=== PATIENT | female | born 1985 | race Caucasian/White ===

== ENCOUNTER 2019-11-10 01:39 | Inpatient (IN) ==
[2019-11-10] MEDS ORDERED: OXYTOCIN 30 UNITS/500 ML BAG IV PRN ×2 (04:22→12:40)
--- NOTE | 2019-11-10 04:29 | History & Physical Report ---
Date of Service November 10, 2019 Assessment & Plan (1) Normal labor: admit. Patient desires expectant management. pitocin /from if indicated. epidural on demand. fetus reassuring. anticipate . History of Present Illness Chief Complaint: contractions Primary Care Provider: NO PCP Patient is a with iup at 39 6/7 weeks who presents with contractions. no lof/vb. +fm. uncomplicated. labsA+/ab-/pap nl/ri/rprnr/hepb-/hiv-/gc/ct-/declined genetics/failed 16 week gtt, passed 2 hr/passed 2 hr gtt at 28 weeks/ declined cf/sma Allergies Allergy/AdvReac Type Severity Reaction Status Date / Time No Known Drug Allergies Allergy Unknown Verified 11/10/19 01:58 Home Medications Home Medications Medication Instructions Recorded Confirmed Type prenat.vits,juliano,whk-myep-zmuna 1 tab PO DAILY 06/16/19 11/10/19 History Patient History Medical History (Updated 11/10/19 @ 04:28 by Chelita Guan MD, FACOG) History of chicken pox Low grade squamous intraepithelial lesion (LGSIL) 06/13/15 Mild cervical dysplasia 01/04/14 Missed Vaginal bleeding in Surgical History (Updated 06/23/19 @ 13:47 by Stephanie Bond) History of cryosurgery cervix History of gynecologic surgery Dilation and Evacuation 01/02/19 Hx of removal of cyst BARTHOLIN CYST REMOVED- Marsupialization Hx of wisdom tooth extraction S/P dilation and curettage Status post colposcopy 01/04/14 Family History (Updated 06/23/19 @ 13:48 by Stephanie Bond) Mother Endometriosis Sister Endometriosis Social History (Updated 06/23/19 @ 13:49 by Stephanie Bond) Preferred Language: Lithuanian Communication Ability: Effective Dialysis Biomed Technician Required: No Beliefs That Will Affect Care: None Current Living Situation: Spouse Other Information That Helps Us Care for You: No Feels Safe at Home: Yes Safety Concerns: Feels Safe At This Time Smoking Status: Never smoker Second Hand Exposure: No ; Hx Alcohol Use: No Hx Substance Use: No OB History 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, 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
[2019-11-10 04:46] LABS: Hematocrit (blood only) 36.6 % (37-47); Hemoglobin 12.5 g/dL (12.0-16.0); Mean Corpuscular Hemoglobin 30.8 pg (25-34); Mean Corpuscular Volume 90.1 fL (80-100); Mean Platelet Volume 10.5 fL (7.4-10.4); Platelet Count 228 K/uL (130-400); RDW Coefficient of Variation 13.5 % (11.5-14.5); RDW Standard Deviation 44.4 fL (36.4-46.3); Red Blood Count 4.06 M/uL (4.2-5.4)
[2019-11-10 05:05] LABS: Mean Corpuscular Hgb Conc 34.2 g/dL (32-36)
--- NOTE | 2019-11-10 07:26 | Labor Progress Brief Note ---
Date of Service November 10, 2019 Subjective getting more uncomfortable Assessment & Plan (1) Normal labor: offered continued expectant management vs. arom. she is considering her options. Fetus reassuring. Physical Exam Constitutional: WD/WN, vitals as above Psychiatric: A+Ox3, euthymic affect Genitourinary: cx--4/100/-2, bulging bag toco--q5min efm--category one Results & Data Vital Signs (Past 12 Hours) Vital Signs Temp Pulse Resp BP 11/10/19 07:01 37.1 C 91 H 18 140/83 11/10/19 02:01 90 141/87 H 11/10/19 01:52 36.7 C 18
[2019-11-10] MEDS: LACTATED RINGER'S 1,000 ML IV PRN ×3 (10:26→16:27)
--- NOTE | 2019-11-10 10:30 | Labor Progress Brief Note ---
Date of Service November 10, 2019 Cx 4cm, 100%. FHR cat 1 AROM performed as patient has accepted this now. Results & Data Vital Signs (Past 12 Hours) Vital Signs Temp Pulse Resp BP 11/10/19 09:21 83 134/76 11/10/19 08:30 18 11/10/19 07:01 98.8 F 91 H 18 140/83 11/10/19 02:01 90 141/87 H 11/10/19 01:52 98.1 F 18
[2019-11-10] MEDS ORDERED: BUPIVACAINE 0.25% 30 ML VIAL ONE ×3 (11:29→16:20)
[2019-11-10] MEDS ORDERED: fentaNYL citrate 100 MCG/2 ML VIAL ONE ×3 (11:29→16:20)
[2019-11-10] MEDS ORDERED: ePHEDrine sulfate 50 MG/ML AMP ONE ×2 (11:29→16:20)
[2019-11-10] MEDS ORDERED: ONDANSETRON INJ 2 MG/ML 2 ML VIAL IV PRN (11:30)
[2019-11-10] MEDS ORDERED: DiphenhydrAMINE HCL 50 MG/ML VIAL IV PRN ×2 (11:30→19:00)
[2019-11-10] MEDS ORDERED: NALOXONE HCL 0.4 MG/1 ML VIAL/CARP IV PRN ×2 (11:30→19:00)
[2019-11-10] MEDS ORDERED: fentaNYL 2MCG/ML ROPIV 1.25MG/ML 100 ML BAG EPI PRN (11:30)
[2019-11-10] MEDS ORDERED: fentaNYL 2MCG/ML ROPIV 1.25MG/ML 100 ML BAG EPI ONE ×2 (11:30→16:22)
[2019-11-10] MEDS ORDERED: NALBUPHINE HCL INJ 10 MG/ML AMP IV PRN ×2 (11:30→19:00)
[2019-11-10] MEDS ORDERED: PROMETHAZINE HCL 6.25 MG in SODIUM CHLORIDE 0.9% 50 ML IV PRN (11:30)
[2019-11-10] MEDS ORDERED: ePHEDrine sulfate 50 MG/ML AMP IV PRN ×2 (11:30→19:00)
[2019-11-10] MEDS ORDERED: NALOXONE HCL 1 MG in SODIUM CHLORIDE 0.9% 1000ML 1,000 ML IV PRN ×2 (11:30→19:00)
--- NOTE | 2019-11-10 11:30 | Anesthesiology Consultation ---
Date of Service November 10, 2019 Assessment & Plan ASA ASA2 Proposed Anesthesia Anesthesia Type: Labor Epidural Risk / Benefits Reviewed With: PT / POA / Parent / Guardian, Accepts Plan and Informed Consent Obtained History Height/Weight Height: 5 ft 5 in Weight: 88.451 kg Allergies Allergy/AdvReac Type Severity Reaction Status Date / Time No Known Drug Allergies Allergy Unknown Verified 11/10/19 01:58 Medications Home Medications Medication Instructions Recorded Confirmed Last Taken prenat.vits,juliano,vrs-iduo-cwgei 1 tab PO DAILY 06/16/19 11/10/19 11/09/19 08:00 Active Medications Generic Name Dose Route Start Last Admin Trade Name Freq PRN Reason Stop Dose Admin Lactated Ringer's 1,000 mls @ 125 mls/hr 11/10/19 04:22 11/10/19 11:33 Lr IV 11/12/19 04:21 125 mls/hr .Q8H PRN Administration L&D Protocol Protocol Oxytocin 30 units in 500 mls @ 1 mls/hr 11/10/19 12:40 11/10/19 13:02 Pitocin IV 11/12/19 12:39 0.06 units/hr .Q24H PRN 1 mls/hr Labor Induction/Augmentation Administration Protocol 0.06 UNITS/HR Ropivacaine 100 ml 11/10/19 11:30 11/10/19 11:57 Epidural (L&D) EPI 11/11/19 11:29 12 ml PRN PRN Administration Pain R/T Labor Protocol Past Medical History Medical History (Updated 11/10/19 @ 04:28 by Chelita Guan MD, FACOG) History of chicken pox Low grade squamous intraepithelial lesion (LGSIL) 06/13/15 Mild cervical dysplasia 01/04/14 Missed Vaginal bleeding in Exercise / Class Metabolic Activity II 4-5 Yardwork/Stairs/Walk up hill Past Family History Family History (Updated 06/23/19 @ 13:48 by Stephanie Bond) Mother Endometriosis Sister Endometriosis Past Surgical History Surgical History (Updated 06/23/19 @ 13:47 by Stephanie Bond) History of cryosurgery cervix History of gynecologic surgery Dilation and Evacuation 01/02/19 Hx of removal of cyst BARTHOLIN CYST REMOVED- Marsupialization Hx of wisdom tooth extraction S/P dilation and curettage Status post colposcopy 01/04/14 Past Anesthesia History No Hx of Anesthesia Complications and No Family Hx of Anesthesia Complications History of PONV No Hx of PONV and No Hx of Motion Sickness Social History Smoking Status: Never smoker Hx Alcohol Use: No Hx Substance Use: No substance use type: does not use Review of Systems denies fever/cough/ colds/ chest pain/ SOB/ LINDA Constitutional: no fever and no chills Respiratory: no cough and no dyspnea denies LINDA Cardiovascular: no chest pain and no dyspnea on exertion Physical Exam Vital Signs Last Vital Signs Temp 36.5 C 11/10/19 12:59 Pulse 79 11/10/19 13:15 Resp 18 11/10/19 12:59 BP 123/62 11/10/19 13:14 Pulse Ox 97 11/10/19 13:15 ENMT Mouth: no TMJ abnormality and no dentition abnormality Thyromental Distance: > or= 3.5 Finger Breadths Mallampati Class: II Neck neck extension not limited Respiratory normal respiratory effort; no respiratory distress Auscultation: lungs clear to auscultation bilaterally Cardiovascular Rate/Rhythm: regular rate and regular rhythm Neurologic moves all extremities Psychiatric Orientation: alert and oriented x 3 Testing Laboratory Results 11/10/19 04:39
--- NOTE | 2019-11-10 12:41 | Obstetrical Progress Note ---
Date of Service CTX spaced. Start pitocin. EFW 7-8 lbs November 10, 2019 Results & Data Vital Signs (Past 12 Hours) Vital Signs Temp Pulse Resp BP Pulse Ox 11/10/19 12:35 78 97 11/10/19 12:30 87 97 11/10/19 12:29 83 120/76 11/10/19 12:25 85 99 11/10/19 12:20 87 99 11/10/19 12:15 91 H 98 11/10/19 12:12 86 138/64 11/10/19 12:10 96 H 98 11/10/19 12:08 87 141/64 H 11/10/19 12:05 87 127/59 L 98 11/10/19 12:02 93 H 129/60 11/10/19 12:00 97 H 97 11/10/19 11:59 90 116/60 11/10/19 11:57 90 134/60 11/10/19 11:55 93 H 100 11/10/19 11:54 96 H 157/70 H 11/10/19 11:50 101 H 98 11/10/19 11:49 102 H 163/89 H 11/10/19 11:47 20 11/10/19 11:45 95 H 98 11/10/19 10:12 18 11/10/19 09:21 83 134/76 11/10/19 09:19 18 11/10/19 08:30 18 11/10/19 07:01 98.8 F 91 H 18 140/83 11/10/19 02:01 90 141/87 H 11/10/19 01:52 98.1 F 18 PG Care Time/CCT Total # of Minutes Spent Total Time Spent with Patient: Total time spent is greater than 50% in coordination of care (as documented) at patient's floor/unit and/or counseling patient:
--- NOTE | 2019-11-10 14:08 | Labor Progress Brief Note ---
Date of Service November 10, 2019 now 6cm, some progress. Cat 1 Results & Data Vital Signs (Past 12 Hours) Vital Signs Temp Pulse Resp BP Pulse Ox 11/10/19 14:05 86 99 11/10/19 14:00 83 100 11/10/19 13:58 81 145/75 H 11/10/19 13:55 79 98 11/10/19 13:50 79 98 11/10/19 13:45 77 97 11/10/19 13:43 78 137/72 11/10/19 13:40 76 18 97 11/10/19 13:35 78 99 11/10/19 13:30 80 98 11/10/19 13:27 76 131/64 11/10/19 13:25 77 97 11/10/19 13:20 76 97 11/10/19 13:15 79 97 11/10/19 13:14 74 123/62 11/10/19 13:10 77 18 97 11/10/19 13:05 82 97 11/10/19 13:00 81 97 11/10/19 12:59 97.7 F 81 18 125/65 11/10/19 12:55 78 96 11/10/19 12:50 81 97 11/10/19 12:45 80 97 11/10/19 12:42 77 124/71 11/10/19 12:40 85 18 98 11/10/19 12:35 78 97 11/10/19 12:30 87 97 11/10/19 12:29 83 120/76 11/10/19 12:25 85 99 11/10/19 12:20 87 99 11/10/19 12:15 91 H 98 11/10/19 12:12 86 138/64 11/10/19 12:10 96 H 98 11/10/19 12:08 87 141/64 H 11/10/19 12:05 87 127/59 L 98 11/10/19 12:02 93 H 129/60 11/10/19 12:00 97 H 97 11/10/19 11:59 90 116/60 11/10/19 11:57 90 134/60 11/10/19 11:55 93 H 100 11/10/19 11:54 96 H 157/70 H 11/10/19 11:50 101 H 98 11/10/19 11:49 102 H 163/89 H 11/10/19 11:47 20 11/10/19 11:45 95 H 98 11/10/19 10:12 18 11/10/19 09:21 83 134/76 11/10/19 09:19 18 11/10/19 08:30 18 11/10/19 07:01 98.8 F 91 H 18 140/83
--- NOTE | 2019-11-10 15:25 | Anesthesiology Progress Note ---
Date of Service November 10, 2019 Subjective The patient stated having increasing labor pains. I bolused the epidural with 75mcg of fentanyl and 5mL of 0.25% bupivacaine. The patient stated having much improved lower abdominal pain. The patient stated having lower back pain but it was improved with the bolus. The patients vital signs were stable throughout. The fetus heart tones also were stable. Physical Exam Vital Signs: Last Vital Signs Temp 97.7 F 11/10/19 12:59 Pulse 87 11/10/19 15:20 Resp 20 11/10/19 14:51 BP 152/80 H 11/10/19 15:13 Pulse Ox 96 11/10/19 15:20 Results & Data Medications Administered Lactated Ringer's (Lr) 1,000 mls @ 125 mls/hr IV .Q8H PRN; Protocol PRN Reason: L&D Protocol Stop: 11/12/19 04:21 Last Infusion: 11/10/19 14:55 Dose: 999 mls/hr Documented by: [id number] Admin: 11/10/19 11:33 Dose: 125 mls/hr Documented by: [id number] Infusion: 11/10/19 11:27 Dose: 999 mls/hr Documented by: [id number] Admin: 11/10/19 10:26 Dose: 999 mls/hr Documented by: [id number] Oxytocin (Pitocin) 30 units in 500 mls @ 0 mls/hr IV .Q0M PRN; Protocol PRN Reason: Labor Induction/Augmentation Stop: 11/12/19 12:39 Last Titration: 11/10/19 14:55 Dose: 0 units/hr, 0 mls/hr Documented by: [id number] Titration: 11/10/19 14:11 Dose: 0.3 units/hr, 5 mls/hr Documented by: [id number] Titration: 11/10/19 13:35 Dose: 0.18 units/hr, 3 mls/hr Documented by: [id number] Admin: 11/10/19 13:02 Dose: 0.06 units/hr, 1 mls/hr Documented by: [id number] Cosigned by: [id number] Ropivacaine (Epidural (L&D)) 100 ml EPI PRN PRN; Protocol PRN Reason: Pain R/T Labor Stop: 11/11/19 11:29 Last Admin: 11/10/19 11:57 Dose: 12 ml Documented by: [id number] Cosigned by: [id number]
--- NOTE | 2019-11-10 17:15 | Labor Progress Brief Note ---
Date of Service November 10, 2019 Patient was very uncomfortable. Anesthesia has re done her epidural and she is better. Cx = 6cm Was 4cm at 7am. So only 2 cm dilatation in 10 hours. 0 change in the last 3 hours. Will recheck at 1800 and offer the patient C/S vs continue labor. Results & Data Vital Signs (Past 12 Hours) Vital Signs Temp Pulse Resp BP Pulse Ox 11/10/19 17:11 90 139/67 99 11/10/19 17:08 88 137/66 11/10/19 17:06 91 H 100 11/10/19 17:02 92 H 120/58 L 11/10/19 17:01 98.2 F 92 H 18 97 11/10/19 16:59 89 116/59 L 11/10/19 16:57 98.2 F 18 11/10/19 16:56 92 H 118/60 100 11/10/19 16:53 86 112/58 L 11/10/19 16:51 90 121/59 L 100 11/10/19 16:50 97 H 88 L 11/10/19 16:47 92 H 144/67 H 11/10/19 16:46 90 98 11/10/19 16:44 98 H 165/74 H 11/10/19 16:41 104 H 97 11/10/19 16:36 102 H 98 11/10/19 16:35 117 H 91 11/10/19 16:31 97 H 98 11/10/19 16:28 105 H 121/75 11/10/19 16:26 103 H 99 11/10/19 16:22 93 H 92 11/10/19 16:21 90 98 11/10/19 16:16 100 H 98 11/10/19 16:13 92 H 125/95 11/10/19 16:11 89 97 11/10/19 16:06 91 H 97 11/10/19 16:01 94 H 98 11/10/19 15:57 92 H 129/69 11/10/19 15:56 88 98 11/10/19 15:51 90 97 11/10/19 15:46 90 96 11/10/19 15:44 90 140/69 11/10/19 15:41 90 97 11/10/19 15:36 93 H 98 11/10/19 15:31 93 H 96 11/10/19 15:30 98 H 90 11/10/19 15:29 94 H 108/79 11/10/19 15:26 88 97 11/10/19 15:20 87 96 11/10/19 15:15 91 H 97 11/10/19 15:13 91 H 152/80 H 11/10/19 15:10 95 H 99 11/10/19 15:05 87 98 11/10/19 15:00 89 99 11/10/19 14:58 82 135/84 11/10/19 14:55 89 98 11/10/19 14:52 85 154/75 H 11/10/19 14:51 20 11/10/19 14:50 87 99 11/10/19 14:45 92 H 97 11/10/19 14:43 91 H 154/92 H 11/10/19 14:40 88 98 11/10/19 14:35 85 97 11/10/19 14:30 93 H 98 11/10/19 14:27 87 123/64 11/10/19 14:25 87 99 11/10/19 14:20 89 99 11/10/19 14:15 81 99 11/10/19 14:13 85 126/78 11/10/19 14:10 88 99 11/10/19 14:05 86 99 11/10/19 14:00 83 100 11/10/19 13:58 81 145/75 H 11/10/19 13:55 79 98 11/10/19 13:50 79 98 11/10/19 13:45 77 97 11/10/19 13:43 78 137/72 11/10/19 13:40 76 18 97 11/10/19 13:35 78 99 11/10/19 13:30 80 98 11/10/19 13:27 76 131/64 11/10/19 13:25 77 97 11/10/19 13:20 76 97 11/10/19 13:15 79 97 11/10/19 13:14 74 123/62 11/10/19 13:10 77 18 97 11/10/19 13:05 82 97 11/10/19 13:00 81 97 11/10/19 12:59 97.7 F 81 18 125/65 11/10/19 12:55 78 96 11/10/19 12:50 81 97 11/10/19 12:45 80 97 11/10/19 12:42 77 124/71 11/10/19 12:40 85 18 98 11/10/19 12:35 78 97 11/10/19 12:30 87 97 11/10/19 12:29 83 120/76 11/10/19 12:25 85 99 11/10/19 12:20 87 99 11/10/19 12:15 91 H 98 11/10/19 12:12 86 138/64 11/10/19 12:10 96 H 98 11/10/19 12:08 87 141/64 H 11/10/19 12:05 87 127/59 L 98 11/10/19 12:02 93 H 129/60 11/10/19 12:00 97 H 97 11/10/19 11:59 90 116/60 11/10/19 11:57 90 134/60 11/10/19 11:55 93 H 100 11/10/19 11:54 96 H 157/70 H 11/10/19 11:50 101 H 98 11/10/19 11:49 102 H 163/89 H 11/10/19 11:47 20 11/10/19 11:45 95 H 98 11/10/19 10:12 18 11/10/19 09:21 83 134/76 11/10/19 09:19 18 11/10/19 08:30 18 11/10/19 07:01 98.8 F 91 H 18 140/83
--- NOTE | 2019-11-10 18:07 | Labor Progress Brief Note ---
Date of Service November 10, 2019 Cx still 6cm, increased moulding/caput palpated. -1 Offered C/S offered to continue labor. I feel as though she is no progress in 4 hours and 2cm in 11 hours thus failure to progress. Risks of C/S including infection increase as longer labor, discussed Results & Data Vital Signs (Past 12 Hours) Vital Signs Temp Pulse Resp BP Pulse Ox 11/10/19 18:01 99 H 100 11/10/19 17:56 82 98 11/10/19 17:52 80 140/72 11/10/19 17:51 82 98 11/10/19 17:46 82 98 11/10/19 17:41 83 98 11/10/19 17:36 84 97 11/10/19 17:31 90 97 11/10/19 17:26 89 97 11/10/19 17:21 89 97 11/10/19 17:20 90 132/64 11/10/19 17:17 86 131/57 L 11/10/19 17:16 89 97 11/10/19 17:14 92 H 138/66 11/10/19 17:11 90 139/67 99 11/10/19 17:08 88 137/66 11/10/19 17:06 91 H 100 11/10/19 17:02 92 H 120/58 L 11/10/19 17:01 98.2 F 92 H 18 97 11/10/19 16:59 89 116/59 L 11/10/19 16:57 98.2 F 18 11/10/19 16:56 92 H 118/60 100 11/10/19 16:53 86 112/58 L 11/10/19 16:51 90 121/59 L 100 11/10/19 16:50 97 H 88 L 11/10/19 16:47 92 H 144/67 H 11/10/19 16:46 90 98 11/10/19 16:44 98 H 165/74 H 11/10/19 16:41 104 H 97 11/10/19 16:36 102 H 98 11/10/19 16:35 117 H 91 11/10/19 16:31 97 H 98 11/10/19 16:28 105 H 121/75 11/10/19 16:26 103 H 99 11/10/19 16:22 93 H 92 11/10/19 16:21 90 98 11/10/19 16:16 100 H 98 11/10/19 16:13 92 H 125/95 11/10/19 16:11 89 97 11/10/19 16:06 91 H 97 11/10/19 16:01 94 H 98 11/10/19 15:57 92 H 129/69 11/10/19 15:56 88 98 11/10/19 15:51 90 97 11/10/19 15:46 90 96 11/10/19 15:44 90 140/69 11/10/19 15:41 90 97 11/10/19 15:36 93 H 98 11/10/19 15:31 93 H 96 11/10/19 15:30 98 H 90 11/10/19 15:29 94 H 108/79 11/10/19 15:26 88 97 11/10/19 15:20 87 96 11/10/19 15:15 91 H 97 11/10/19 15:13 91 H 152/80 H 11/10/19 15:10 95 H 99 11/10/19 15:05 87 98 11/10/19 15:00 89 99 11/10/19 14:58 82 135/84 11/10/19 14:55 89 98 11/10/19 14:52 85 154/75 H 11/10/19 14:51 20 11/10/19 14:50 87 99 11/10/19 14:45 92 H 97 11/10/19 14:43 91 H 154/92 H 11/10/19 14:40 88 98 11/10/19 14:35 85 97 11/10/19 14:30 93 H 98 11/10/19 14:27 87 123/64 11/10/19 14:25 87 99 11/10/19 14:20 89 99 11/10/19 14:15 81 99 11/10/19 14:13 85 126/78 11/10/19 14:10 88 99 11/10/19 14:05 86 99 11/10/19 14:00 83 100 11/10/19 13:58 81 145/75 H 11/10/19 13:55 79 98 11/10/19 13:50 79 98 11/10/19 13:45 77 97 11/10/19 13:43 78 137/72 11/10/19 13:40 76 18 97 11/10/19 13:35 78 99 11/10/19 13:30 80 98 11/10/19 13:27 76 131/64 11/10/19 13:25 77 97 11/10/19 13:20 76 97 11/10/19 13:15 79 97 11/10/19 13:14 74 123/62 11/10/19 13:10 77 18 97 11/10/19 13:05 82 97 11/10/19 13:00 81 97 11/10/19 12:59 97.7 F 81 18 125/65 11/10/19 12:55 78 96 11/10/19 12:50 81 97 11/10/19 12:45 80 97 11/10/19 12:42 77 124/71 11/10/19 12:40 85 18 98 11/10/19 12:35 78 97 11/10/19 12:30 87 97 11/10/19 12:29 83 120/76 11/10/19 12:25 85 99 11/10/19 12:20 87 99 11/10/19 12:15 91 H 98 11/10/19 12:12 86 138/64 11/10/19 12:10 96 H 98 11/10/19 12:08 87 141/64 H 11/10/19 12:05 87 127/59 L 98 11/10/19 12:02 93 H 129/60 11/10/19 12:00 97 H 97 11/10/19 11:59 90 116/60 11/10/19 11:57 90 134/60 11/10/19 11:55 93 H 100 11/10/19 11:54 96 H 157/70 H 11/10/19 11:50 101 H 98 11/10/19 11:49 102 H 163/89 H 11/10/19 11:47 20 11/10/19 11:45 95 H 98 11/10/19 10:12 18 11/10/19 09:21 83 134/76 11/10/19 09:19 18 11/10/19 08:30 18 11/10/19 07:01 98.8 F 91 H 18 140/83
[2019-11-10] MEDS ORDERED: CITRIC ACID/SODIUM CITRATE 15 ML UDC PO STA (18:13)
[2019-11-10] MEDS ORDERED: CEFAZOLIN 2000MG 2,000 MG/15 ML SYR IV STA (18:14)
[2019-11-10] MEDS ORDERED: ONDANSETRON INJ 2 MG/ML 2 ML VIAL ONE (18:15)
[2019-11-10] MEDS ORDERED: OXYTOCIN 10 UNITS/ML VIAL ONE (18:15)
[2019-11-10] MEDS ORDERED: KETOROLAC 30 MG/ML VIAL ONE (18:15)
[2019-11-10] MEDS ORDERED: LACTATED RINGER'S 1,000 ML IV SCH ×2 (18:15→19:47)
[2019-11-10] MEDS ORDERED: LIDOCAINE/EPINEPHRINE 2% 1:200,000 20 ML SDV ONE (18:15)
[2019-11-10] MEDS ORDERED: MoRPHine SULFATE PF 1 MG/ML 10 ML AMP/VIAL ONE (18:16)
--- NOTE | 2019-11-10 18:39 | Anesthesiology Progress Note ---
Date of Service November 10, 2019 Subjective The patient has a functioning epidural. The plan is to use the epidural for the . I spoke to the patient about receiving general anesthesia in the event the epidural is inadequate. The patient was understanding and agreeable to the plan. Physical Exam Vital Signs: Last Vital Signs Temp 98.2 F 11/10/19 17:01 Pulse 105 H 11/10/19 18:27 Resp 18 11/10/19 18:00 BP 165/82 H 11/10/19 18:27 Pulse Ox 100 11/10/19 18:26 Results & Data Medications Administered Lactated Ringer's (Lr) 1,000 mls @ 125 mls/hr IV .Q8H PRN; Protocol PRN Reason: L&D Protocol Stop: 11/12/19 04:21 Last Infusion: 11/10/19 18:19 Dose: 999 mls/hr Documented by: [id number] Admin: 11/10/19 16:27 Dose: 125 mls/hr Documented by: [id number] Infusion: 11/10/19 15:30 Dose: 999 mls/hr Documented by: [id number] Infusion: 11/10/19 14:55 Dose: 999 mls/hr Documented by: [id number] Admin: 11/10/19 11:33 Dose: 125 mls/hr Documented by: [id number] Infusion: 11/10/19 11:27 Dose: 999 mls/hr Documented by: [id number] Admin: 11/10/19 10:26 Dose: 999 mls/hr Documented by: [id number] Oxytocin (Pitocin) 30 units in 500 mls @ 5 mls/hr IV .Q24H PRN; Protocol PRN Reason: Labor Induction/Augmentation Stop: 11/12/19 12:39 Last Titration: 11/10/19 17:45 Dose: 0.3 units/hr, 5 mls/hr Documented by: [id number] Titration: 11/10/19 17:13 Dose: 0.18 units/hr, 3 mls/hr Documented by: [id number] Titration: 11/10/19 16:04 Dose: 0.06 units/hr, 1 mls/hr Documented by: [id number] Titration: 11/10/19 14:55 Dose: 0 units/hr, 0 mls/hr Documented by: [id number] Titration: 11/10/19 14:11 Dose: 0.3 units/hr, 5 mls/hr Documented by: [id number] Titration: 11/10/19 13:35 Dose: 0.18 units/hr, 3 mls/hr Documented by: [id number] Admin: 11/10/19 13:02 Dose: 0.06 units/hr, 1 mls/hr Documented by: [id number] Cosigned by: [id number] Ropivacaine (Epidural (L&D)) 100 ml EPI PRN PRN; Protocol PRN Reason: Pain R/T Labor Stop: 11/11/19 11:29 Last Admin: 11/10/19 11:57 Dose: 12 ml Documented by: [id number] Cosigned by: [id number]
[2019-11-10] MEDS ORDERED: DC INTRASPINAL MORPHINE SCH (19:00)
[2019-11-10] MEDS ORDERED: NO NARCOTICS OR SEDATIVES SCH (19:00)
[2019-11-10] MEDS ORDERED: MEPERIDINE HCL 25 MG/ML CARP IV PRN (19:00)
[2019-11-10] MEDS ORDERED: MoRPHine SULFATE PF 1 MG/ML 10 ML AMP/VIAL INT SPINAL ONE (19:00)
[2019-11-10] MEDS ORDERED: SODIUM CHLORIDE 0.9% 1000ML 1,000 ML IV SCH (19:00)
[2019-11-10] MEDS ORDERED: NALOXONE HCL 0.08 MG in SYRINGE 1.8 ML IV PRN (19:00)
[2019-11-10] MEDS ORDERED: LACTATED RINGER'S 500 ML IV PRN (19:00)
[2019-11-10 19:29] LABS: Base Excess Cord Arterial Bld 1.4 mEq/L (-9-1.8); CO2 Cord Arterial Blood 52 mmHg (39.1-73.5); HCO3 Cord Arterial Blood 28 mmol/L (19.7-28.5); pH Cord Arterial Blood 7.35 (7.1-7.38)
--- NOTE | 2019-11-10 19:32 | Operative Report ---
[facility] Post Operative Report Pre & Post Diagnosis Operation Date: 11/10/19 18:30 Pre-Op Diagnosis: Failure to progress Post-Op Diagnosis: Same; delivery of a live male child at 1852 I identified the patient and participated in the time-out.: Yes Procedure Operation Date: 11/10/19 18:30 Actual Procedures p Section in LD(Bilateral) - Marcel Farooq MD, FACOG Surgeon Marcel Farooq MD, FACOG [place] none Estimated Blood Loss 600 Findings Consistent with Post-Op Diagnosis Specimens gases, cord blood Description of Procedure Regional anesthetic was given by anesthesia patient had a Mccartney catheter inserted by nursing patient was prepped and draped in supine position with a leftward tilt preoperative antibiotics were given timeout performed Pickups with teeth were used to test the skin site and it was found adequate for incision scalpel used to make a Pfannenstiel incision cutting down through sub cutaneous fat through the fascia fascia was then dissected laterally with the curved Ramirez's fascia was released superiorly and inferiorly from the rectus muscles with the curved Ramirez scissors, rectus muscle split peritoneal cavity entered in a superior location. Opening enlarged to allow exposure bladder retractor placed Metzenbaums used to dissect away the bladder flap low segment transverse incision made on the uterus with scalpel entry was done bluntly with the paper folding machine operator's finger hysterotomy incision extended with the paper folding machine operator's finger in the usual fashion baby was delivered then by flexion of the head and pressure from the licensed sales assistant on the abdomen mouth and then nares were suctioned baby was then delivered fully without difficulty without excessive force live vigorous cord clamped and cut cord gases obtained cord blood obtained placenta removed manually within ensured all placenta removed with a moist lap sponge uterus exteriorized IV Pitocin had been started by anesthesia and uterine tone improved. The uterus was closed in 2 layers first layer and 0 Monocryl running locked second layer 0 Monocryl nonlocked after generous irrigation and suction of the cul-de-sac and bladder flap regions hemostasis was excellent uterus was placed back in the peritoneal cavity and hemostasis was excellent rectus muscles were inspected and found to be dry fascia closed with 0 Vicryl subcutaneous fat closed with 3-0 Vicryl prior to this subcutaneous fat was irrigated skin closed with 4-0 subcuticular Monocryl incision Steri-Stripped urine was clear at the end of the procedure I attest to the content of the Intraoperative Record and any orders documented therein. Any exceptions are noted below.
[2019-11-10 19:35] LABS: Base Excess Cord Venous Blood -0.1 mEq/L (-7.7-1.9); Cord Venous Blood HCO3 26 mmol/L (18.4-26.8); Cord Venous Blood PCO2 47 mmHg (30.4-57.2); Cord Venous Blood PO2 22 mmHg (14.1-43.3); Cord Venous Blood pH 7.36 (7.20-7.44)
[2019-11-10 19:40] LABS: Oxygen Sat Cord Arterial Blood < 60.0 % (<60)
[2019-11-10 19:41] LABS: O2 Saturation Cord Venous Bld < 60.0 % (<68)
[2019-11-10] MEDS ORDERED: SUPERCREAM 0.870% 15 GM JAR EXT PRN (19:47)
[2019-11-10] MEDS ORDERED: SENNA 8.6 MG TAB PO PRN (19:47)
[2019-11-10] MEDS ORDERED: HYDROCORTISONE ACETATE 25 MG SUPP PR PRN (19:47)
[2019-11-10] MEDS ORDERED: MAGNESIUM HYDROXIDE SUSP 30 ML UDC PO PRN (19:47)
[2019-11-10] MEDS ORDERED: MEPERIDINE HCL 50 MG/ML CARP IV PRN (19:47)
[2019-11-10] MEDS ORDERED: BENZOCAINE 20% AER SPR 82.5 GM CAN EXT PRN (19:47)
[2019-11-10] MEDS ORDERED: DIPHTHERIA/TETANUS/PERTUSSIS 0.5 ML SYR/VIAL IM ONE (19:47)
--- NOTE | 2019-11-10 20:05 | Anesthesiology Progress Note ---
Date of Service November 10, 2019 Anesthesia Post Procedure Vital Signs Vital Signs: Temp Pulse Resp BP Pulse Ox 11/10/19 20:03 92 H 20 99 11/10/19 20:02 75 119/58 L 11/10/19 19:58 73 98 11/10/19 19:53 73 20 98 11/10/19 19:52 71 112/59 L 11/10/19 19:48 78 97 11/10/19 19:43 85 20 115/58 L 99 11/10/19 19:38 91 H 98 11/10/19 19:33 97.5 F L 90 20 124/65 96 11/10/19 18:27 105 H 165/82 H 11/10/19 18:26 87 100 11/10/19 18:21 86 146/79 H 100 11/10/19 18:16 87 100 11/10/19 18:11 93 H 97 11/10/19 18:07 86 135/73 11/10/19 18:06 81 100 11/10/19 18:01 99 H 100 11/10/19 18:00 18 11/10/19 17:56 82 98 11/10/19 17:52 80 140/72 11/10/19 17:51 82 98 11/10/19 17:46 82 98 11/10/19 17:41 83 98 11/10/19 17:36 84 97 11/10/19 17:31 90 97 11/10/19 17:26 89 97 11/10/19 17:21 89 97 11/10/19 17:20 90 132/64 11/10/19 17:17 86 131/57 L 11/10/19 17:16 89 97 11/10/19 17:14 92 H 138/66 11/10/19 17:11 90 139/67 99 11/10/19 17:08 88 137/66 11/10/19 17:06 91 H 100 11/10/19 17:02 92 H 120/58 L 11/10/19 17:01 98.2 F 92 H 18 97 11/10/19 16:59 89 116/59 L 11/10/19 16:57 98.2 F 18 11/10/19 16:56 92 H 118/60 100 11/10/19 16:53 86 112/58 L 11/10/19 16:51 90 121/59 L 100 11/10/19 16:50 97 H 88 L 11/10/19 16:47 92 H 144/67 H 11/10/19 16:46 90 98 11/10/19 16:44 98 H 165/74 H 11/10/19 16:41 104 H 97 11/10/19 16:36 102 H 98 11/10/19 16:35 117 H 91 11/10/19 16:31 97 H 98 11/10/19 16:28 105 H 121/75 11/10/19 16:26 103 H 99 11/10/19 16:22 93 H 92 11/10/19 16:21 90 98 11/10/19 16:16 100 H 98 11/10/19 16:13 92 H 125/95 11/10/19 16:11 89 97 11/10/19 16:06 91 H 97 11/10/19 16:01 94 H 98 11/10/19 15:57 92 H 129/69 11/10/19 15:56 88 98 11/10/19 15:51 90 97 11/10/19 15:46 90 96 11/10/19 15:44 90 140/69 11/10/19 15:41 90 97 11/10/19 15:36 93 H 98 11/10/19 15:31 93 H 96 11/10/19 15:30 98 H 90 11/10/19 15:29 94 H 108/79 11/10/19 15:26 88 97 11/10/19 15:20 87 96 11/10/19 15:15 91 H 97 11/10/19 15:13 91 H 152/80 H 11/10/19 15:10 95 H 99 11/10/19 15:05 87 98 11/10/19 15:00 89 99 11/10/19 14:58 82 135/84 11/10/19 14:55 89 98 11/10/19 14:52 85 154/75 H 11/10/19 14:51 20 11/10/19 14:50 87 99 11/10/19 14:45 92 H 97 11/10/19 14:43 91 H 154/92 H 11/10/19 14:40 88 98 11/10/19 14:35 85 97 11/10/19 14:30 93 H 98 11/10/19 14:27 87 123/64 11/10/19 14:25 87 99 11/10/19 14:20 89 99 11/10/19 14:15 81 99 11/10/19 14:13 85 126/78 11/10/19 14:10 88 99 11/10/19 14:05 86 99 11/10/19 14:00 83 100 11/10/19 13:58 81 145/75 H 11/10/19 13:55 79 98 11/10/19 13:50 79 98 11/10/19 13:45 77 97 11/10/19 13:43 78 137/72 11/10/19 13:40 76 18 97 11/10/19 13:35 78 99 11/10/19 13:30 80 98 11/10/19 13:27 76 131/64 11/10/19 13:25 77 97 11/10/19 13:20 76 97 11/10/19 13:15 79 97 11/10/19 13:14 74 123/62 11/10/19 13:10 77 18 97 11/10/19 13:05 82 97 11/10/19 13:00 81 97 11/10/19 12:59 97.7 F 81 18 125/65 11/10/19 12:55 78 96 11/10/19 12:50 81 97 11/10/19 12:45 80 97 11/10/19 12:42 77 124/71 11/10/19 12:40 85 18 98 11/10/19 12:35 78 97 11/10/19 12:30 87 97 11/10/19 12:29 83 120/76 11/10/19 12:25 85 99 11/10/19 12:20 87 99 11/10/19 12:15 91 H 98 11/10/19 12:12 86 138/64 11/10/19 12:10 96 H 98 11/10/19 12:08 87 141/64 H 11/10/19 12:05 87 127/59 L 98 11/10/19 12:02 93 H 129/60 11/10/19 12:00 97 H 97 11/10/19 11:59 90 116/60 11/10/19 11:57 90 134/60 11/10/19 11:55 93 H 100 11/10/19 11:54 96 H 157/70 H 11/10/19 11:50 101 H 98 11/10/19 11:49 102 H 163/89 H 11/10/19 11:47 20 11/10/19 11:45 95 H 98 11/10/19 10:12 18 11/10/19 09:21 83 134/76 11/10/19 09:19 18 11/10/19 08:30 18 11/10/19 07:01 98.8 F 91 H 18 140/83 11/10/19 02:01 90 141/87 H 11/10/19 01:52 98.1 F 18 Transfer of Care Handoff Completed per policy Notes Mental Status: alert / awake / arousable and participated in evaluation Patient Amnestic to Procedure: Yes Nausea / Vomiting: adequately controlled Pain: adequately controlled Airway Patency, RR, SpO2: stable & adequate BP & HR: stable & adequate Hydration State: stable & adequate Neuraxial Anesthesia: was administered and sensory block is resolving Anesthetic Complications: no major complications apparent and Pt Satisfied with anesthetic care
[2019-11-10] MEDS: OXYTOCIN 20 UNITS in LACTATED RINGER'S 1,000 ML IV SCH (21:51)
[2019-11-10] MEDS: KETOROLAC 30 MG/ML VIAL IV PRN (22:02)
[2019-11-10] MEDS: SIMETHICONE 80 MG CHEW PO SCH (23:19)
[2019-11-10] MEDS: DOCUSATE SODIUM 100 MG CAP PO SCH (23:19)
[2019-11-11] MEDS: OXYTOCIN 20 UNITS in LACTATED RINGER'S 1,000 ML IV SCH (05:25)
[2019-11-11] MEDS ORDERED: CEFAZOLIN 2000MG 2,000 MG/15 ML SYR IV SCH (06:00)
[2019-11-11] MEDS ORDERED: CITRIC ACID/SODIUM CITRATE 15 ML UDC PO SCH (06:00)
[2019-11-11 06:40] LABS: Basophils # (auto) 0.01 K/uL (0-0.2); Basophils % (auto) 0.1 %; Eosinophils # (auto) 0.03 K/uL (0-0.5); Eosinophils % (auto) 0.2 %; Hematocrit (blood only) 28.4 % (37-47); Hemoglobin 9.7 g/dL (12.0-16.0); Immature Granulocytes # (auto) 0.05 K/uL (0.00-0.02); Immature Granulocytes % (auto) 0.4 %; Lymphocytes # (auto) 1.66 K/uL (1.2-3.4); Mean Corpuscular Hgb Conc 34.2 g/dL (32-36); Mean Corpuscular Volume 90.7 fL (80-100); Mean Platelet Volume 10.5 fL (7.4-10.4); Monocytes # (auto) 0.91 K/uL (0.11-0.59); Monocytes % (auto) 7.1 %; Neutrophils % (auto) 79.2 %; Platelet Count 176 K/uL (130-400); RDW Coefficient of Variation 13.6 % (11.5-14.5); RDW Standard Deviation 44.5 fL (36.4-46.3); Red Blood Count 3.13 M/uL (4.2-5.4); White Blood Count 12.76 K/uL (4.8-10.8)
--- NOTE | 2019-11-11 07:03 | Obstetrical Progress Note ---
Date of Service November 11, 2019 POD#1 from C/S for FTP. Catheter still in place pain well controlled, min bleeding Assessment & Plan (1) delivery delivered: Ambulate, remove catheter. Follow closely Physical Exam Constitutional WD/WN, vitals as above Gastrointestinal (Abdomen) normal bowel sounds, soft, nontender, no hepatosplenomegaly incision clean Results & Data Vital Signs (Past 12 Hours) Vital Signs Temp Pulse Pulse Resp BP BP Pulse Ox 11/11/19 06:30 20 97 11/11/19 05:30 18 96 11/11/19 04:30 18 95 11/11/19 03:35 99.1 F 80 20 115/74 96 11/11/19 03:30 20 99 11/11/19 02:30 20 99 11/11/19 01:30 18 97 11/11/19 00:30 16 96 11/10/19 23:40 98.6 F 80 18 109/66 96 11/10/19 22:39 100 H 136/76 92 11/10/19 22:38 98 H 95 11/10/19 22:33 97 H 97 11/10/19 22:30 98.1 F 100 H 20 136/76 92 11/10/19 22:28 95 H 97 11/10/19 22:23 101 H 97 11/10/19 22:18 91 H 97 11/10/19 22:13 93 H 97 11/10/19 22:08 95 H 97 11/10/19 22:03 78 99 11/10/19 21:58 92 H 99 11/10/19 21:53 96 H 98 11/10/19 21:48 89 98 11/10/19 21:43 81 97 11/10/19 21:38 86 99 11/10/19 21:33 98.1 F 86 20 99 11/10/19 21:32 82 120/74 11/10/19 21:28 80 99 11/10/19 21:23 88 99 11/10/19 21:22 139 H 117/74 11/10/19 21:18 83 99 11/10/19 21:13 84 99 11/10/19 21:12 81 119/70 11/10/19 21:08 83 98 11/10/19 21:03 78 20 98 11/10/19 21:02 76 122/68 11/10/19 20:58 78 100 11/10/19 20:53 80 119/71 99 11/10/19 20:48 75 99 11/10/19 20:43 74 99 11/10/19 20:42 83 130/79 11/10/19 20:38 82 99 11/10/19 20:33 82 20 140/67 97 11/10/19 20:28 96 H 99 11/10/19 20:24 88 132/62 11/10/19 20:23 87 20 98 11/10/19 20:18 89 97 11/10/19 20:17 91 H 94 11/10/19 20:14 86 126/58 L 11/10/19 20:13 81 18 100 11/10/19 20:08 86 100 11/10/19 20:03 92 H 20 99 11/10/19 20:02 75 119/58 L 11/10/19 19:58 73 98 11/10/19 19:53 73 20 98 11/10/19 19:52 71 112/59 L 11/10/19 19:48 78 97 11/10/19 19:43 85 20 115/58 L 99 11/10/19 19:38 91 H 98 11/10/19 19:33 97.5 F L 90 20 124/65 96
[2019-11-11] MEDS: PRENATAL VITAMIN 1 TAB PO SCH (08:35)
[2019-11-11] MEDS: DOCUSATE SODIUM 100 MG CAP PO SCH ×2 (08:35→20:18)
[2019-11-11] MEDS: SIMETHICONE 80 MG CHEW PO SCH ×4 (08:35→20:18)
[2019-11-11] MEDS ORDERED: NON-FORMULARY MEDICATION (Prenat.Vits,Cal,Min-Iron-Folic 1 TAB) PO SCH (09:00)
[2019-11-11] MEDS: KETOROLAC 30 MG/ML VIAL IV PRN (11:12)
[2019-11-11] MEDS ORDERED: DiphenhydrAMINE HCL 50 MG/ML VIAL IV PRN (13:00)
[2019-11-11] MEDS ORDERED: PROMETHAZINE HCL 25 MG in SODIUM CHLORIDE 0.9% 50 ML IV PRN (13:00)
[2019-11-11] MEDS ORDERED: ONDANSETRON INJ 2 MG/ML 2 ML VIAL IV PRN (13:00)
[2019-11-11] MEDS ORDERED: KETOROLAC 30 MG/ML VIAL IV PRN (13:00)
[2019-11-11] MEDS: IBUPROFEN 600 MG TAB PO PRN (16:35)
[2019-11-11] MEDS: OXYCODONE/ACETAMINOPHEN 5mg/325mg TAB PO PRN (16:36)
[2019-11-11] MEDS ORDERED: bisacodyL 5 MG TABEC PO SCH (20:00)
[2019-11-12] MEDS: IBUPROFEN 600 MG TAB PO PRN ×4 (00:03→18:49)
[2019-11-12] MEDS: OXYCODONE/ACETAMINOPHEN 5mg/325mg TAB PO PRN ×4 (00:03→18:48)
[2019-11-12 06:17] LABS: Hematocrit (blood only) 25.6 % (37-47); Hemoglobin 8.3 g/dL (12.0-16.0)
--- NOTE | 2019-11-12 07:08 | Obstetrical Progress Note ---
Date of Service November 12, 2019 Assessment & Plan (1) delivery delivered: POD2 s/p C/S for failure to progress. - Hg dropped from 12.5 to 9.7 in one day. Will continue to monitor. - Denies dizziness, lightheadedness, headache, weakness. - Encouraged ambulation as tolerated. - progressing towards discharge (2) Normal labor: Supervising Physician Co-Signing Physician Notes Resident Physician Supervision Note: I was present with Dr. Hooker during the history and exam. I discussed the case with the resident and agree with the findings and plan as documented in the note. Any exceptions or clarifications are listed here: POD#2 doing well, anticipate discharge home tomorrow. Continue routine postop care. Documented By: Jessy Champion, DO Subjective No complaints this AM. Has been able to ambulate to the bathroom, but not outside of the room. Review of Systems Constitutional: + fatigue; no fever and no chills Eyes: no diplopia Respiratory: no cough and no dyspnea Cardiovascular: no chest pain, no syncope, no edema and no calf pain Gastrointestinal: no abdominal pain, no nausea, no vomiting, no cramping, no constipation and no diarrhea/loose stools Genitourinary: no dysuria and no difficulty urinating Neurologic: no unsteadiness, no dizziness and no headache(s) Physical Exam Constitutional: well developed and well nourished Respiratory: normal respiratory effort; no respiratory distress, no labored breathing and no cough Auscultation: no crackles, no rales, no rhonchi and no wheezes Cardiovascular: Rate/Rhythm: regular rate and regular rhythm Heart Sounds: no gallop, no murmur and no cardiac rub Extremities: no pedal edema Gastrointestinal (Abdomen): Inspection/Auscultation: normal bowel sounds; abdomen not distended Percussion/Palpation: abdomen soft; abdomen nontender and no guarding Skin: C/S incision appears to be healing well. Intact, no fluid or bloody leakage. Mildly tender to palpation around scar. Genitourinary: Uterus firm, palpable at umbilicus, some tenderness to palpation. Results & Data Vital Signs (Past 12 Hours) Vital Signs Temp Pulse Resp BP 11/11/19 23:00 36.8 C 88 18 130/78 12/26/19 Range/Units 06:04 Hgb 8.3 L (12.0-16.0) g/dL Hct 25.6 L (37-47) % Resident Activity Tracking Resident Involvement: Resident Care Provided Care Provided: Adult Hospital Medicine and OB Delivery
[2019-11-12] MEDS: PRENATAL VITAMIN 1 TAB PO SCH (08:50)
[2019-11-12] MEDS: SIMETHICONE 80 MG CHEW PO SCH ×4 (08:50→21:39)
[2019-11-12] MEDS: DOCUSATE SODIUM 100 MG CAP PO SCH ×2 (08:50→21:39)
[2019-11-12] MEDS ORDERED: bisacodyL 10 MG SUPP PR PRN (19:30)
[2019-11-13] MEDS: IBUPROFEN 600 MG TAB PO PRN ×2 (00:34→10:00)
[2019-11-13] MEDS: OXYCODONE/ACETAMINOPHEN 5mg/325mg TAB PO PRN ×2 (00:35→10:00)
[2019-11-13 06:32] LABS: Hematocrit (blood only) 25.9 % (37-47); Hemoglobin 8.5 g/dL (12.0-16.0)
--- NOTE | 2019-11-13 07:01 | Obstetrical Progress Note ---
Date of Service November 13, 2019 Assessment & Plan (1) delivery delivered: doing well, ready for d/c home. f/u 6 wks pp, instructions reviewed. checked on papdmp and no issues identified. Day #:: 3 Subjective Ambulation: ambulating normally Voiding: no voiding problems Passing Gas:: Yes Diet Tolerance:: regular diet Lochia:: Small Feeding Type:: breast feeding using ibuprofen and percocet for pain, managed well. Physical Exam Constitutional WD/WN, vitals as above Respiratory normal respiratory effort, lungs clear to auscultation Cardiovascular Rate/Rhythm: regular rate and regular rhythm Gastrointestinal (Abdomen) Inspection/Auscultation: + abdominal surgical incision (c/d/i with bruising) Percussion/Palpation: abdomen soft; abdomen nontender FF 2 down. nt Musculoskeletal nt calves Neurologic grossly normal Psychiatric A+Ox3, euthymic affect Results & Data Vital Signs (Past 12 Hours) Vital Signs Temp Pulse Resp BP 11/13/19 00:00 99.0 F 80 18 116/78
--- NOTE | 2019-11-13 07:39 | Obstetrical Progress Note ---
Date of Service November 13, 2019 Assessment & Plan (1) delivery delivered: POD3 s/p C/S for failure to progress. - Hg stabilized at 8.5 - Denies dizziness, lightheadedness, headache, weakness. - Encouraged ambulation as tolerated. - okay for discharge home today - discharge instructions and reasons to call office discussed. All questions answered. (2) Normal labor: Subjective Feeling well this morning. Was able to ambulate around the floor last night without issue. Review of Systems Constitutional: no fever, no chills and no fatigue Respiratory: no cough and no dyspnea Cardiovascular: no chest pain, no syncope, no edema and no calf pain Gastrointestinal: no abdominal pain, no nausea, no vomiting, no cramping, no constipation and no diarrhea/loose stools Genitourinary: no dysuria and no difficulty urinating Neurologic: no headache(s) Physical Exam Constitutional: well developed and well nourished Respiratory: normal respiratory effort; no respiratory distress, no labored breathing and no cough Auscultation: no crackles, no rales, no rhonchi and no wheezes Cardiovascular: Rate/Rhythm: regular rate and regular rhythm Heart Sounds: no gallop, no murmur and no cardiac rub Extremities: no pedal edema Gastrointestinal (Abdomen): Inspection/Auscultation: normal bowel sounds; abdomen not distended Percussion/Palpation: abdomen soft; abdomen nontender and no guarding Musculoskeletal: no tenderness to palpation of calves bilaterally Genitourinary: Uterus small and firm, palpable in midline at level of umbilicus, no tenderness to palpation. C/S incision intact, dry, no oozing.Small firm hematoma palpable at right corner of incision where patient describes discomfort when walking. Results & Data Vital Signs (Past 12 Hours) Vital Signs Temp Pulse Resp BP 11/13/19 00:00 37.2 C 80 18 116/78 11/13/19 Range/Units 06:23 Hgb 8.5 L (12.0-16.0) g/dL Hct 25.9 L (37-47) % Resident Activity Tracking Resident Involvement: Resident Care Provided Care Provided: Adult Hospital Medicine and OB Delivery
[2019-11-13] MEDS: DOCUSATE SODIUM 100 MG CAP PO SCH (08:39)
[2019-11-13] MEDS: SIMETHICONE 80 MG CHEW PO SCH (08:39)
[2019-11-13] MEDS: PRENATAL VITAMIN 1 TAB PO SCH (08:39)
--- NOTE | 2019-11-16 07:20 | Discharge Summary ---
Date of Service November 16, 2019 Admission HPI Per Admitting Provider Patient is a with iup at 39 6/7 weeks who presents with contractions. no lof/vb. +fm. uncomplicated. labsA+/ab-/pap nl/ri/rprnr/hepb-/hiv-/gc/ct-/declined genetics/failed 16 week gtt, passed 2 hr/passed 2 hr gtt at 28 weeks/ declined cf/sma Admission Exam (Per Admitting) Constitutional WD/WN, vitals as above Gastrointestinal (Abdomen) normal bowel sounds, soft, nontender, no hepatosplenomegaly Discharge Data Consultations 11/10/19 04:22 Consult Anesthesiology Stat Procedures Performed Operation Date: 11/10/19 18:30 Actual Procedures p Section in LD(Bilateral) - Marcel Farooq MD, [facility] Course (1) delivery delivered: doing well, ready for d/c home. f/u 6 wks pp, instructions reviewed. checked on papdmp and no issues identified. hb 8.5 on discharge
== END 2019-11-13 14:43 | disposition home or self-care (01) | DRG 788 ==
LOC: OPB 01:39 → 4S1 01:41 → 4S2 22:40